=== PATIENT | female | born 1970 | race Caucasian/White ===

== ENCOUNTER 2017-01-03 19:44 | Emergency (ER) | payer OTHER ==
[2017-01-03] MEDS ORDERED: Sodium Chloride 0.9% 1,000 ML IV ONE (20:23)
--- NOTE | 2017-01-03 20:25 | C.PDOC ---
History Of Present Illness Patient is a 46 year old female who presents to the ER with a complaint of right sided abdominal pain since yesterday. Patient states the pain goes from the right flank to the RLQ; reports she has a Hx of kidney stones. Denies nausea , vomiting, dysuria, hematuria or fever. Chief Complaint (Nursing): Abdominal Pain History Per: Patient History/Exam Limitations: no limitations Onset/Duration Of Symptoms: Hrs Current Symptoms Are (Timing): Still Present Location Of Pain/Discomfort: RLQ, Other (Right flank) Radiation Of Pain To:: None Quality Of Discomfort: Unable To Describe Associated Symptoms: denies: Fever, Nausea, Vomiting, Urinary Symptoms Exacerbating Factors: None Alleviating Factors: None Recent travel outside of the [place]: No Past Medical History Reviewed: Historical Data, Nursing Documentation, Vital Signs Vital Signs: Last Vital Signs Temp 98.3 F 01/03/17 20:02 Pulse 81 01/03/17 20:02 Resp 16 01/03/17 20:02 BP 133/81 01/03/17 20:02 Pulse Ox 99 01/03/17 22:23 - Medical History PMH: Asthma Surgical History: No Surg Hx Family History: States: Unknown Family Hx - Social History Hx Tobacco Use: No Hx Alcohol Use: No Hx Substance Use: No - Immunization History Hx Tetanus Toxoid Vaccination: No Hx Influenza Vaccination: No Hx Pneumococcal Vaccination: No Review Of Systems Constitutional: Negative for: Fever Gastrointestinal: Positive for: Abdominal Pain (Right flank to RLQ). Negative for: Nausea, Vomiting Genitourinary: Negative for: Dysuria, Hematuria Physical Exam - Physical Exam Appears: Non-toxic Skin: Normal Color, Warm, Dry Head: Atraumatic, Normacephalic Oral Mucosa: Moist Chest: Symmetrical, No Tenderness Cardiovascular: Rhythm Regular, No Murmur Respiratory: Normal Breath Sounds, No Rales, No Rhonchi, No Wheezing Gastrointestinal/Abdominal: Soft, Tenderness (Right flank) Neurological/Psych: Oriented x3, Normal Speech, Normal Cognition ED Course And Treatment - Laboratory Results Result Diagrams: 01/03/17 20:33 01/03/17 20:33 O2 Sat by Pulse Oximetry: 99 (Room air) Pulse Ox Interpretation: Normal - CT Scan/US CT abd/pel Other Rad Studies (CT/US): Read By Radiologist, Radiology Report Reviewed CT/US Interpretation: EXAM: CT Abdomen and Pelvis Without Intravenous Contrast. CLINICAL HISTORY: 46 years old, female; Pain; Abdominal pain; Flank ; Right lower quadrant (rlq); Additional info: Abd. pain. TECHNIQUE: Axial computed tomography images of the abdomen and pelvis without intravenous contrast. This. CT exam was performed using one or more of the following dose reduction techniques: automated. exposure control, adjustment of the mA and/or kV according to patient size, and/or use of iterative. reconstruction technique. Coronal and sagittal reformatted images were created and reviewed. EXAM DATE/TIME: 01/03/2017 8:23 PM. COMPARISON: No relevant prior studies available. FINDINGS: The liver is prominent and decreased in attenuation suggestive of fatty infiltration. The gallbladder, spleen, and pancreas appear grossly normal on this non-contrast study. No perinephric stranding. No hydronephrosis. No obstructing calculi. The bowel appears grossly normal. A normal appendix is identified coronal images 73 through 80. Ovarian follicles are noted. The uterus appears grossly normal on noncontrast study. Nonspecific stranding and nodular soft tissue densities in subcutaneous fat of the buttocks possibly. related to injections. Clinical correlation recommended. Small lymph nodes are noted in the groins. Small area of sclerosis in the right pubic rami. IMPRESSION: No acute findings. Progress Note: CT abd/pel, blood work and urinalysis ordered. Toradol and IV fluids administered. Disposition Counseled Patient/Family Regarding: Diagnosis - Disposition Referrals: [facility] [Outside] Disposition: HOME/ ROUTINE Disposition Time: 23:02 Condition: STABLE Prescriptions: Ciprofloxacin [Cipro] 1 tab PO BID #14 tab traMADol/Acetaminophen [Ultracet 325 MG-37.5 MG] 1 tab PO Q4 #20 tab Instructions: Acute Hematuria (DC), Renal Colic (GEN) Forms: Gen Discharge Inst Yakut Print Language: MALIAN - POA Present On Arrival: None - Clinical Impression Clinical Impression: Hematuria, Renal colic - Scribe Statement The provider has reviewed the documentation as recorded by the Rebeccaibelaina Freedman All medical record entries made by the Rebeccaibe were at my direction and personally dictated by me. I have reviewed the chart and agree that the record accurately reflects my personal performance of the history, physical exam, medical decision making, and the department course for this patient. I have also personally directed, reviewed, and agree with the discharge instructions and disposition.
[2017-01-03 20:40] LABS: BASO % 0.5 % (0.0-2.0); EOS # 0.5 K/uL (0.0-0.7); EOS % 5.6 % (0.0-4.0); LYMPH # 2.2 K/uL (1.0-4.3); LYMPH % 26.6 % (20.0-40.0); MEAN CELL VOLUME 88.1 fL (81.0-99.0); MEAN CORPUSCULAR HEMOGLOBIN 29.5 pg (27.0-31.0); MEAN CORPUSCULAR HGB CONC 33.5 g/dL (33.0-37.0); MEAN PLATELET VOLUME 11.2 fL (7.2-11.7); MONO # 0.6 K/uL (0.0-0.8); MONO % 7.2 % (0.0-10.0); NEUT # 4.9 K/uL (1.8-7.0); NEUT % 60.1 % (50.0-75.0); RBC 4.42 Mil/uL (3.80-5.20); RED CELL DISTRIBUTION WIDTH 13.9 % (11.5-14.5); WHITE BLOOD COUNT 8.2 K/uL (4.8-10.8)
[2017-01-03] MEDS ORDERED: Sodium Chloride 0.9% 1,000 ML ONE (20:40)
[2017-01-03 20:41] LABS: HCG,QUALITATIVE URINE NEGATIVE (NEGATIVE)
[2017-01-03 20:47] LABS: SQUAMOUS EPITHIAL 2 /hpf (0-5); URINE BACTERIA OCC (<OCC); URINE BILIRUBIN NEGATIVE (NEGATIVE); URINE BLOOD 1+ (NEGATIVE); URINE CLARITY Clear (Clear); URINE COLOR Straw (YELLOW); URINE GLUCOSE (UA) NORMAL (Normal); URINE LEUKOCYTE ESTERASE NEG Leu/uL (Negative); URINE NITRATE NEGATIVE (NEGATIVE); URINE PROTEIN NEGATIVE (NEGATIVE); URINE UROBILINOGEN NORMAL mg/dL (0.2-1.0)
[2017-01-03 20:56] LABS: ALB/GLOB RATIO 1.2 (1.0-2.1); ALT/SGPT 37 U/L (9-52); AST/SGOT 21 U/L (14-36); BLOOD UREA NITROGEN 11 mg/dL (7-17); CALCIUM 8.9 mg/dl (8.6-10.4); GFR AFRICAN-AMERICAN > 60; GFR NON-AFRICAN AMERICAN > 60; LIPASE 92 U/L (23-300)
--- NOTE | 2017-01-03 22:19 | CT ---
EXAM: CT Abdomen and Pelvis Without Intravenous Contrast CLINICAL HISTORY: 46 years old, female; Pain; Abdominal pain; Flank; Right lower quadrant (rlq); Additional info: Abd pain TECHNIQUE: Axial computed tomography images of the abdomen and pelvis without intravenous contrast. This CT exam was performed using one or more of the following dose reduction techniques: automated exposure control, adjustment of the mA and/or kV according to patient size, and/or use of iterative reconstruction technique. Coronal and sagittal reformatted images were created and reviewed. EXAM DATE/TIME: 01/03/2017 8:23 PM COMPARISON: No relevant prior studies available. FINDINGS: The liver is prominent and decreased in attenuation suggestive of fatty infiltration. The gallbladder, spleen, and pancreas appear grossly normal on this non-contrast study. No perinephric stranding. No hydronephrosis. No obstructing calculi. The bowel appears grossly normal. A normal appendix is identified coronal images 73 through 80. Ovarian follicles are noted. The uterus appears grossly normal on noncontrast study. Nonspecific stranding and nodular soft tissue densities in subcutaneous fat of the buttocks possibly related to injections. Clinical correlation recommended. Small lymph nodes are noted in the groins. Small area of sclerosis in the right pubic rami. IMPRESSION: No acute findings.
[2017-01-03] MEDS ORDERED: Ciprofloxacin 400mg/200ml D5W 400 MG/200 ML BAG IVPB STA (23:06)
[2017-01-03] MEDS ORDERED: Ciprofloxacin 400mg/200ml D5W 400 MG/200 ML BAG IVPB ONE (23:23)
[2017-01-04 01:01] VITALS: BP 130/70; PULSE 80; RESP 14; TEMP 97.6; O2SAT 98
== END 2017-01-04 01:01 | disposition home or self-care (01) ==
LOC: C.ER 19:44
DX: N23 Unspecified renal colic (principal); R31.9 Hematuria, unspecified
CPT/HCPCS: 74176; 80053; 81001; 83690; 84703; 85025; 87086; 87181; 96361; 96374; 96375; 99285; J0744; J1885; J7040

== ENCOUNTER 2017-06-12 21:27 | Emergency (ER) | payer OTHER ==
[2017-06-12 22:51] LABS: BASO % 0.5 % (0.0-2.0); EOS # 0.4 K/uL (0.0-0.7); EOS % 4.6 % (0.0-4.0); HEMATOCRIT 37.5 % (34.0-47.0); LYMPH # 2.2 K/uL (1.0-4.3); LYMPH % 25.2 % (20.0-40.0); MEAN CELL VOLUME 87.7 fL (81.0-99.0); MEAN CORPUSCULAR HEMOGLOBIN 29.5 pg (27.0-31.0); MEAN CORPUSCULAR HGB CONC 33.7 g/dL (33.0-37.0); MONO # 0.6 K/uL (0.0-0.8); MONO % 6.9 % (0.0-10.0); RED CELL DISTRIBUTION WIDTH 14.3 % (11.5-14.5); WHITE BLOOD COUNT 8.6 K/uL (4.8-10.8)
--- NOTE | 2017-06-12 23:00 | C.PDOC ---
History Of Present Illness 46 year old female presents to the ED for evaluation of intermittent midsternal chest pain which began around 2 days ago. Patient describes her symptoms as a pressure-like sensation and states it has been progressive. Patient denies nausea, diaphoresis, or radiation of her pain. Time Seen by Provider: 06/12/17 22:00 Chief Complaint (Nursing): Chest Pain History Per: Patient History/Exam Limitations: no limitations Onset/Duration Of Symptoms: Days (3), Intermittent Episodes Current Symptoms Are (Timing): Still Present Quality: Pressure Associated Symptoms: denies: Nausea, Diaphoresis Additional History Per: Patient Past Medical History Reviewed: Historical Data, Nursing Documentation, Vital Signs Vital Signs: Last Vital Signs Temp 98.3 F 06/12/17 21:48 Pulse 72 06/12/17 21:48 Resp 18 06/12/17 21:48 BP 130/83 06/12/17 21:48 Pulse Ox 99 06/12/17 23:42 - Medical History PMH: Asthma Surgical History: No Surg Hx Family History: States: Unknown Family Hx - Social History Hx Tobacco Use: No Hx Alcohol Use: No Hx Substance Use: No - Immunization History Hx Tetanus Toxoid Vaccination: No Hx Influenza Vaccination: No Hx Pneumococcal Vaccination: No Review Of Systems Constitutional: Negative for: Sweats Cardiovascular: Positive for: Chest Pain Gastrointestinal: Negative for: Nausea Musculoskeletal: Negative for: Neck Pain, Shoulder Pain, Arm Pain Physical Exam - Physical Exam Appears: Non-toxic, No Acute Distress Skin: Normal Color, Warm, Dry Head: Atraumatic, Normacephalic Eye(s): bilateral: Normal Inspection Oral Mucosa: Moist Neck: Supple Chest: Symmetrical, No Deformity, No Tenderness Cardiovascular: Rhythm Regular, No Murmur Respiratory: Normal Breath Sounds, No Rales, No Rhonchi, No Wheezing Extremity: Normal ROM, Capillary Refill (less than 2 seconds ) Neurological/Psych: Oriented x3, Normal Speech, Normal Cognition Gait: Steady ED Course And Treatment - Laboratory Results Result Diagrams: 06/12/17 22:48 06/12/17 22:48 ECG: Interpreted By Me, Viewed By Me ECG Rhythm: Sinus Rhythm Interpretation Of ECG: Normal Sinus Rhythm at 91bpm. Normal intervals. Normal [place]. No ST/T wave abnormalities. Rate From EC O2 Sat by Pulse Oximetry: 99 (on RA) Pulse Ox Interpretation: Normal Medical Decision Making Medical Decision Making: Progress: Bloodwork, Urinalysis, CXR, EKG ordered and reviewed. Aspirin PO and Pepcid IVP administered. Preliminary read of CXR shows no active disease. This patient is choosing to leave against medical advice. I have personally explained to the patient that choosing to do so may result in permanent bodily harm or . I have discussed at great length that without further evaluation and monitoring there may be unforeseen circumstances and/or deterioration causing permanent bodily harm or as a result of their choice. The pt verbalized these risks back to the physician in laymans terms. The pt is alert, oriented, and shows the mental capacity to make clear decisions regarding the pts health care at this time. The pt continues to wish to leave against medical advice. In light of the pts decision to leave AMA, follow-up has been arranged and the pt is aware of the importance of following up as instructed. The pt has been advised that they should return to the ED immediately if they change their mind at any time, or if their condition begins to change or worsen in any way. Disposition Counseled Patient/Family Regarding: Studies Performed, Diagnosis, Need For Followup - Disposition Referrals: Mic [facility] MD [Staff Provider] - Disposition: AGAINST MEDICAL ADVICE Disposition Time: 23:40 Condition: STABLE Additional Instructions: follow up with your doctor tomorrow call to see your doctor return to hospital at anytime you are signing out against medical advice and assuming responsibility of your care and do not hold myself or staff responsible for negative outcome including . Instructions: Chest Pain (ED) Forms: [facility] (Khmer), General Discharge Instructions Print Language: YI - Clinical Impression Clinical Impression: Chest pain - Scribe Statement The provider has reviewed the documentation as recorded by the Scribe (Mel Damon) Provider Attestation: All medical record entries made by the Scribe were at my direction and personally dictated by me. I have reviewed the chart and agree that the record accurately reflects my personal performance of the history, physical exam, medical decision making, and the department course for this patient. I have also personally directed, reviewed, and agree with the discharge instructions and disposition.
[2017-06-12 23:04] LABS: ALKALINE PHOSPHATASE 55 U/L (38-126); ALT/SGPT 43 U/L (9-52); AST/SGOT 23 U/L (14-36); BILIRUBIN,TOTAL 0.4 mg/dL (0.2-1.3); BLOOD UREA NITROGEN 14 mg/dL (7-17); CALCIUM 8.7 mg/dl (8.6-10.4); CARBON DIOXIDE 31 mmol/L (22-30); CHLORIDE 102 mmol/L (98-107); GFR AFRICAN-AMERICAN > 60; GLUCOSE,RANDOM 106 mg/dL (65-105); SODIUM 140 mmol/L (132-148); TOTAL PROTEIN 8.3 g/dL (6.3-8.3)
[2017-06-13 00:15] VITALS: BP 131/85; PULSE 73; RESP 20; TEMP 98.5; O2SAT 98
--- NOTE | 2017-06-13 11:54 | RAD ---
HISTORY: chest pain COMPARISON: Chest x-ray performed 07/10/13 TECHNIQUE: Chest, one view. FINDINGS: Examination limited by habitus. LUNGS: No focal consolidation. Please note that chest x-ray has limited sensitivity for the detection of pulmonary masses. PLEURA: No significant pleural effusion identified. No definite pneumothorax . CARDIOVASCULAR: The cardiomediastinal silhouette appears within normal limits of size. OSSEOUS STRUCTURES: No acute osseous abnormality identified. VISUALIZED UPPER ABDOMEN: Unremarkable. OTHER FINDINGS: None. IMPRESSION: No focal consolidation, significant pleural effusion, or definite pneumothorax identified.
--- NOTE | 2017-06-15 11:55 | CARD ---
APPROVED REPORT EKG Measurement Heart [id number] <Conclusion> Normal sinus rhythm Normal ECG
== END 2017-06-13 00:15 | disposition left against medical advice (07) ==
LOC: SUPCPDRO 21:27 → C.ER 21:27
DX: R07.9 Chest pain, unspecified (principal)

== ENCOUNTER 2017-11-10 09:56 | Emergency (ER) | payer OTHER ==
[2017-11-10 10:01] VITALS: RESP 18; O2SAT 100
--- NOTE | 2017-11-10 10:44 | C.PDOC ---
History Of Present Illness 46 year old female presents to the ED for evaluation of headache, nausea, and vomiting x 3 days. Patient reports history of similar headache, "but havem't had one in a long time." Patient is s/p Tylenol at 0600 with limited relief. Patent denies abdominal pain. She is also c/o exacerbation of chronic right- sided mid-back pain since today. Patient previous diagnosis "because of my asthma." She is complaint with Symbicort. Denies shortness of breath. [place], [place] X 3 DAYS. PS HO PRIOR SIM MCDONNELL "BUT HAVENT HAD ONE IN A LONG TIME". S/P TYL @ 0600 W LIMITED RELIEF. NO ABD PAIN. ALSO CO EXAC CHRONIC R MID BACK PAIN SINCE TODAY. PREV DX "BC OF MY ASTHMA". COMPLIANT W SYMBICORT. NO SOB. EXAM MILD DIST NONTOXIC LUNGS CTA B/L NO W/R/R BACK NONTEND NEURO NO FOCAL DEF ABD NEG REMAINDER NEG Time Seen by Provider: 11/10/17 10:08 Chief Complaint (Nursing): GI Problem History Per: Patient History/Exam Limitations: no limitations Onset/Duration Of Symptoms: Hrs, Days (3) Current Symptoms Are (Timing): Still Present Additional History Per: Patient Past Medical History Reviewed: Historical Data, Nursing Documentation, Vital Signs Vital Signs: Last Vital Signs Temp 98 F 11/10/17 12:10 Pulse 67 11/10/17 12:10 Resp 18 11/10/17 12:10 BP 116/78 11/10/17 12:10 Pulse Ox 100 11/10/17 12:33 - Medical History PMH: Asthma Surgical History: No Surg Hx Family History: States: Unknown Family Hx - Social History Hx Tobacco Use: No Hx Alcohol Use: No Hx Substance Use: No - Immunization History Hx Tetanus Toxoid Vaccination: No Hx Influenza Vaccination: No Hx Pneumococcal Vaccination: No Review Of Systems Gastrointestinal: Positive for: Nausea, Vomiting Musculoskeletal: Positive for: Back Pain Neurological: Positive for: Headache Physical Exam - Physical Exam Appears: Non-toxic, Other (in mild distress ) Skin: Normal Color, Warm, Dry Head: Atraumatic, Normacephalic Eye(s): bilateral: Normal Inspection Oral Mucosa: Moist Neck: Supple Chest: Symmetrical, No Deformity, No Tenderness Cardiovascular: Rhythm Regular, No Murmur Respiratory: Normal Breath Sounds, No Rales, No Rhonchi, No Wheezing, Other ( clear to ausculation bilaterally ) Gastrointestinal/Abdominal: Soft, No Tenderness, No Guarding, No Rebound Back: No CVA Tenderness, No Vertebral Tenderness, No Paraspinal Tenderness Extremity: Normal ROM, Capillary Refill (less than 2 seconds ) Neurological/Psych: Oriented x3, Normal Speech, Normal Cognition, Other (no focal deficits ) Gait: Steady ED Course And Treatment O2 Sat by Pulse Oximetry: 100 Pulse Ox Interpretation: Normal - Radiology CXR: Interpreted by Me CXR Interpretation: Yes: No Acute Disease Progress Note: CT Head and CXR ordered and reviewed. Compazine IM, Duoneb INH, Imitrex SC, and Toradol IM administered. Reevaluation Time: 12:32 Reassessment Condition: Improved (ASYMPT FEELS BETTER) Disposition Counseled Patient/Family Regarding: Studies Performed, Diagnosis, Need For Followup - Disposition Referrals: YOUR,PMD [Other] Disposition: HOME/ ROUTINE Disposition Time: 12:32 Condition: IMPROVED Instructions: Upper Back Pain (DC), Headache, Adult (DC) Forms: [employer] (Occitan) - Clinical Impression Clinical Impression: Headache, Back pain - Scribe Statement The provider has reviewed the documentation as recorded by the Scribe (Mel Damon) Provider Attestation: All medical record entries made by the Scribe were at my direction and personally dictated by me. I have reviewed the chart and agree that the record accurately reflects my personal performance of the history, physical exam, medical decision making, and the department course for this patient. I have also personally directed, reviewed, and agree with the discharge instructions and disposition.
[2017-11-10] MEDS ORDERED: Albuterol-Ipratrop 3 mg / 0.5 (3 ml) UD IH STA (10:45)
[2017-11-10] MEDS ORDERED: Albuterol-Ipratrop 3 mg / 0.5 (3 ml) UD ONE (10:54)
--- NOTE | 2017-11-10 11:45 | CT ---
PROCEDURE: CT HEAD WITHOUT CONTRAST. HISTORY: [place] COMPARISON: No prior study available for comparison TECHNIQUE: Axial computed tomography images were obtained through the head/brain without intravenous contrast. Radiation dose: Total exam DLP = 1142.36 mGy-cm. This CT exam was performed using one or more of the following dose reduction techniques: Automated exposure control, adjustment of the mA and/or kV according to patient size, and/or use of iterative reconstruction technique. FINDINGS: HEMORRHAGE: No acute parenchymal, subarachnoid nor extra-axial hemorrhage. BRAIN: No mass effect or edema. No atrophy or chronic microvascular ischemic changes. VENTRICLES: No obstructive hydrocephalus. CALVARIUM: Calvarium intact PARANASAL SINUSES: Sinusitis no fluid levels seen to suggest on acute sinusitis or hemorrhage. There is mild mucosal thickening in the right maxillary antrum with minor mucosal thickening left maxillary antrum. Moderate the the the the mucosal thickening ethmoid air complex extending superiorly into the frontal sinus. There is also minor mucosal thickening in the sphenoid sinus. MASTOID AIR CELLS: Unremarkable as visualized. No inflammatory changes. OTHER FINDINGS: None. IMPRESSION: No acute intracranial hemorrhage or large acute infarct. Mucoperiosteal inflammatory changes seen within all the paranasal sinuses as described. No evidence to suggest acute
--- NOTE | 2017-11-10 11:51 | RAD ---
HISTORY: Right pleuritic pain. COMPARISON: No prior. TECHNIQUE: Chest PA and lateral FINDINGS: LUNGS: No active pulmonary disease. PLEURA: No significant pleural effusion identified. No pneumothorax apparent. CARDIOVASCULAR: Normal. OSSEOUS STRUCTURES: Minor multilevel degenerative spondylosis of the thoracic spine the with mild dextroscoliosis VISUALIZED UPPER ABDOMEN: Normal. OTHER FINDINGS: None. IMPRESSION: No active disease.
[2017-11-10 12:11] VITALS: BP 116/78; PULSE 67; TEMP 98
== END 2017-11-10 12:38 | disposition home or self-care (01) ==
LOC: C.ER 09:56
DX: R51 Headache (principal); M54.9 Dorsalgia, unspecified
CPT/HCPCS: 70450; 71046; 94640; 96372; 99285; J0780; J1885; J3030